=== PATIENT | female | born 1985 | race Caucasian/White ===

== ENCOUNTER 2020-01-07 12:05 | Emergency (ER) | payer BC ==
[2020-01-07 12:35] VITALS: TEMP 98.6
[2020-01-07] MEDS ORDERED: IBUPROFEN 600 MG TAB PO STA (13:00)
--- NOTE | 2020-01-07 13:19 | ED ---
Headache HPI - General Chief Complaint: Headache Stated Complaint: confusion, arm pain headache Time Seen by Provider: 01/07/20 12:38 Mode of arrival: wheelchair Limitations: no limitations - History of Present Illness Initial Comments: Patient is a 34-year-old female presenting to the emergency Department with complaints of a headache. Patient states she was riding her bike to work today when she was trying to think of her friends name and states she is not able to think of her right away. She states she became anxious because of this and felt like she was having some numbness in her right hand. Patient states she has been been worked up in the ER before for chest pain, anxiety. Is not taking any medication for this. Patient states this all lasted for approximately one hour, and now she developed a headache. She currently rates her headache a 5/10. She denies any blurry vision, falls or trauma to her head, nausea or vomiting. She denies taking any medications. She does not think she is but is willing to take a test. She denies any dizziness, lightheadedness, chest pain or shortness of breath. She has no further complaints at this time. Upon arrival to the ER, her vital signs are stable. - Related Data Home Medications Medication Instructions Recorded Confirmed No Known Home Medications 01/07/20 01/07/20 Allergies Allergy/AdvReac Type Severity Reaction Status Date / Time latex Allergy red skin Verified 01/07/20 13:58 sally Allergy congestion Uncoded 01/07/20 12:36 Review of Systems ROS Statement: Those systems with pertinent positive or pertinent negative responses have been documented in the HPI. ROS Other: All systems not noted in ROS Statement are negative. Past Medical History Past Medical History: Chest Pain / Angina Additional Past Medical History / Comment(s): belching with pain radiating rt upper quad into rt armpit and chest tightness with tightness into the throat,has MTHR Clotting Gene History of Any Multi-Drug Resistant Organisms: None Reported Past Surgical History: No Surgical Hx Reported Additional Past Surgical History / Comment(s): wisdom teeth Past Anesthesia/Blood Transfusion Reactions: Motion Sickness Additional Past Anesthesia/Blood Transfusion Reaction / Comment(s): never has had general anesthesia Past Psychological History: No Psychological Hx Reported Smoking Status: Never smoker Past Alcohol Use History: Occasional Past Drug Use History: None Reported - Past Family History Mother Family Medical History: Deep Vein Thrombosis (DVT) Father Family Medical History: Cancer Additional Family Medical History / Comment(s): skin Brother(s) Additional Family Medical History / Comment(s): IGA nephropathy General Exam - General Exam Comments Initial Comments: GENERAL: Patient is well-developed and well-nourished. Patient is nontoxic and in no acute distress. HEAD: Atraumatic, normocephalic. EYES: Pupils equal round and reactive to light, extraocular movements intact, sclera anicteric, conjunctiva are normal. Eyelids were unremarkable. ENT: TMs normal, nares patent, oropharynx clear without exudates. Moist mucous membranes. NECK: Normal range of motion, supple without lymphadenopathy or JVD. LUNGS: Unlabored respirations. Breath sounds clear to auscultation bilaterally and equal. No wheezes rales or rhonchi. HEART: Regular rate and rhythm without murmurs, rubs or gallops. ABDOMEN: Soft, nontender, normoactive bowel sounds. No guarding, no rebound. No masses appreciated. : Deferred MUSCULOSKELETAL: Normal extremities with adequate strength and normal range of motion, no pitting or edema. No clubbing or cyanosis. NEUROLOGICAL: Patient is alert and oriented x 3. Motor and sensory are also intact. Cranial nerves II through XII grossly intact. Symmetrical smile. Normal speech, normal gait. PSYCH: Normal mood, normal affect. SKIN: Warm, Dry, normal turgor, no rashes or lesions noted. Limitations: no limitations Course Vital Signs 01/07/20 01/07/20 01/07/20 12:33 13:19 14:42 Temperature 98.6 F Pulse Rate 67 53 L 66 Respiratory 16 18 18 Rate Blood Pressure 117/70 114/73 111/69 O2 Sat by Pulse 99 98 100 Oximetry 01/07/20 14:59 Temperature 98.6 F Pulse Rate 66 Respiratory 18 Rate Blood Pressure 111/69 O2 Sat by Pulse 100 Oximetry Medical Decision Making - Medical Decision Making Patient is a 34-year-old female here for a headache, after having some anxiety. Patient's exam is unremarkable, her vital signs are stable. There are no neuro deficits. I did do a computed tomography scan of the head which showed no acute abnormalities. Patient was given ibuprofen for her headache. She states it did improve slightly but was requesting additional pain meds. I did offer her a [place] tablet however patient refused. She states she feels well to go home. Patient is stable for discharge. I recommend following up with her PCP. Patient is agreeable with this plan of care. Return parameters were discussed with the patient she verbalized understanding. Case discussed with Dr. Baldwin. - Lab Data Lab Results 01/07/20 Range/Units 13:15 Urine HCG, Qual Not Detected (Not Detectd) Disposition Clinical Impression: Headache Disposition: HOME SELF-CARE Condition: Stable Instructions (If sedation given, give patient instructions): Acute Headache (ED) Additional Instructions: Please return to the Emergency Department if symptoms worsen or any other concerns. May continue with ibuprofen every 4-6 hours for continued headache. Follow-up with PCP. Is patient prescribed a controlled substance at d/c from ED?: No Referrals: Scar Allen DO [Primary Care Provider] - 1-2 days
[2020-01-07 13:20] VITALS: RESP 18
--- NOTE | 2020-01-07 14:01 | CT ---
EXAMINATION TYPE: CT brain wo con DATE OF EXAM: 01/07/2020 COMPARISON: None. HISTORY: Headache and confusion. CT DLP: 1099.4 mGycm. Automated Exposure Control for Dose Reduction was Utilized. TECHNIQUE: CT scan of the head is performed without contrast. FINDINGS: There is no acute intracranial hemorrhage, mass effect, or midline shift identified. The ventricles and sulci are within normal limits in size. Cabrera-white matter differentiation is maintai jorge luis. The globes are intact and the visualized sinuses are clear. Slightly low-lying right inferior ce rebellar tonsil axial image 5 but not greater than 5 mm inferior descent to suggest Chiari type I mal formation IMPRESSION: No acute intracranial hemorrhage or midline shift.
[2020-01-07] MEDS ORDERED: HYDROcodone/APAP 5-325MG 1 EACH TAB PO STA (14:22)
[2020-01-07 14:42] VITALS: BP 111/69; PULSE 66
== END 2020-01-07 14:59 | disposition home or self-care (01) ==
LOC: EC 12:05
DX: R51 Headache (principal); F41.9 Anxiety disorder, unspecified; R20.0 Anesthesia of skin; Z91.040 Latex allergy status; Z91.048 Other nonmedicinal substance allergy status
CPT/HCPCS: 70450; 81025; 99284

== ENCOUNTER → 2020-03-07 | Outpatient (CLI) | payer BC ==
--- NOTE | 2020-03-08 06:22 | MR ---
EXAMINATION TYPE: MR angio head wo con DATE OF EXAM: 03/07/2020 COMPARISON: NONE HISTORY: Expressive aphasia, rt hand numbness, TIA/CVA TECHNIQUE: Time of flight images focusing on the [place] were performed without contrast.. 2-D and 3-D postprocessing imaging is performed on independent workstation and reviewed. FINDINGS: There is dominant left vertebral artery. Both vertebral arteries are patent to basilar junc tion. No significant focal stenosis or aneurysmal change. Patent bilateral posterior communicating ar teries. Patent anterior communicating artery. No significant focal stenosis or aneurysmal change in the anter ior circulation. IMPRESSION: No significant focal stenosis or aneurysmal change at the level of the [place].
--- NOTE | 2020-03-08 06:24 | MR ---
EXAMINATION TYPE: MR brain wo con DATE OF EXAM: 03/07/2020 COMPARISON: CT brain January 07, 2020. HISTORY: Expressive aphasia, rt hand numbness, TIA/CVA TECHNIQUE: Multiplanar, multisequence imaging of the brain and brainstem is performed without IV cont rast. FINDINGS: Diffusion weighted images demonstrate no evidence of a recent infarct or other diffusion abnormality. There is no extraaxial fluid collection or significant white matter signal abnormality. The ventricu lar system and cisternal spaces are normal in size and appearance. The brain volume is age appropria te. Midline structures demonstrate normal morphology. Slightly low-lying right cerebellar tonsil sagittal image 11 approaching but just measuring under 5 mm. Normal vascular flow voids are present. The visu alized sinuses are clear and the globes are intact. IMPRESSION: No MRI evidence for a recent infarct. No significant White matter changes. Low-lying righ t cerebellar ectopia otherwise unremarkable study.
== END | disposition home or self-care (01) ==
LOC: RADMRIMAIN 20:54
PROVIDERS: ATTEND Psychiatry & Neurology Neurology
DX: G93.5 Compression of brain (principal); I67.9 Cerebrovascular disease, unspecified; Z86.73 Personal history of transient ischemic attack (TIA), and cerebral infarction without residual deficits
CPT/HCPCS: 70544; 70551

== ENCOUNTER 2023-02-17 03:09 | Inpatient (IN) | payer BC ==
[2023-02-17] MEDS ORDERED: CARBOPROST TROMETHAMINE 250 MCG/ML 1 ML AMP IM PRN (03:53)
[2023-02-17] MEDS ORDERED: TERBUTALINE 1 MG/ML VIAL SQ PRN (03:53)
[2023-02-17] MEDS ORDERED: METHYLERGONOVINE 0.2 MG/ML 1 ML AMP IM PRN (03:53)
[2023-02-17] MEDS ORDERED: miSOPROStoL 200 MCG TAB PO PRN ×2 (03:53→13:05)
[2023-02-17] MEDS ORDERED: OXYTOCIN 10 UNIT/ML 1 ML VIAL IM PRN (03:53)
[2023-02-17] MEDS ORDERED: TRANEXAMIC 1,000 MG/100ML-NACL 1,000 MG in EMPTY BAG 1 BAG IV PRN (03:53)
[2023-02-17] MEDS ORDERED: LIDOCAINE 0.5% (PF) 5 MG/ML (50 ML SDV) SQ PRN (03:53)
[2023-02-17] MEDS ORDERED: NALBUPHINE 10 MG/ML (10 ML MDV) IV PRN (03:55)
[2023-02-17] MEDS ORDERED: OXYTOCIN 30 UNITS/500 ML NS 30 UNIT in SALINE 1 500ML.BAG IV SCH (04:00)
[2023-02-17] MEDS: LACTATED RINGERS 1,000 ML IV SCH ×2 (04:10→18:34)
[2023-02-17 04:32] LABS: Basophils % (A) 0 %; Eosinophils % (A) 0 %; HCT 42.1 % (34.0-46.0); HGB 14.5 gm/dL (11.4-16.0); Lymphocytes # (A) 2.1 k/uL (1.0-4.8); Lymphocytes % (A) 19 %; MCH 35.5 pg (25.0-35.0); MCHC 34.6 g/dL (31.0-37.0); MCV 102.6 fL (80.0-100.0); Mean Platelet Volume 11.1; Monocytes # (A) 0.5 k/uL (0-1.0); Monocytes % (A) 4 %; Neutrophils # (A) 8.3 k/uL (1.3-7.7); Neutrophils % (A) 75 %; Platelet Count 144 k/uL (150-450); RDW 11.9 % (11.5-15.5)
--- NOTE | 2023-02-17 10:04 | P.HPOB ---
History of Present Illness H&P Date: 02/17/23 Chief Complaint: Labor at 40-5/7 This is a 37-year-old 1 para 0 woman with an estimated due date of 02/12/2023 based on LMP consistent with 8 week ultrasound who presents in spontaneous active labor at 40-5/7 weeks. Her has been monitored for possible history of TIA in 2019 with no residual neurologic effects. She is heterozygous MTH far and has been on aspirin 81 mg daily. She is known Rh- and received Ciera appropriately. On presentation to labor and delivery triage she reported approximately 10 hours of increasing contraction activity and was found to be 4+ centimeters dilated she is therefore admitted. Laboratory data: Blood type A-, antibody screen negative, rubella immune, VDRL nonreactive, hepatitis B surface antigen negative, HIV negative, gonorrhea and clinic cultures negative, group B strep negative, glucose tolerance testing with in normal limits. On Past medical history: Possible TIA 2019 Past surgical history EGD 2015 was some teeth removal age 16 Family history mother with history of blood clots social history negative for tobacco alcohol and drug use Review of Systems All systems: negative Past Medical History Past Medical History: Chest Pain / Angina Additional Past Medical History / Comment(s): belching with pain radiating rt upper quad into rt armpit and chest tightness with tightness into the throat,has MTHR Clotting Gene History of Any Multi-Drug Resistant Organisms: None Reported Past Surgical History: No Surgical Hx Reported Additional Past Surgical History / Comment(s): wisdom teeth Past Anesthesia/Blood Transfusion Reactions: Motion Sickness Additional Past Anesthesia/Blood Transfusion Reaction / Comment(s): never has had general anesthesia Past Psychological History: No Psychological Hx Reported Smoking Status: Never smoker Past Alcohol Use History: Occasional Past Drug Use History: None Reported - Past Family History Mother Family Medical History: Deep Vein Thrombosis (DVT), Pulmonary Embolus Father Family Medical History: Cancer Additional Family Medical History / Comment(s): skin Brother(s) Additional Family Medical History / Comment(s): IGA nephropathy Medications and Allergies Home Medications Medication Instructions Recorded Confirmed Type Aspirin [Adult Low Dose Aspirin EC] 1 tab PO DAILY 02/17/23 02/17/23 History Vit No.179/Iron/Folic 1 tab PO DAILY 02/17/23 02/17/23 History [ Tablet] Allergies Allergy/AdvReac Type Severity Reaction Status Date / Time latex Allergy red skin Verified 01/07/20 13:58 sally Allergy congestion Uncoded 01/07/20 12:36 Exam Vital Signs Temp Pulse Resp BP Pulse Ox 02/17/23 03:38 98.6 F 74 16 137/75 99 02/17/23 03:11 98.6 F 74 16 137/75 99 Intake and Output 02/16/23 02/17/23 02/17/23 22:59 06:59 14:59 Other: Weight 73.482 kg Limited physical exam is performed: Patient is somewhat uncomfortable with contractions, female who is visibly gravid. On pelvic examination the cervix is 6 cm dilated, 90% effaced and the vertex in the -2 station. Artificial rupture of membranes is undertaken and scant clear fluid is noted. Of note patient has a very flat pubic arch and flat narrow pelvic inlet. On heart tones are category 1 and she is apolinar every 4-5 minutes spontaneously. Results Result Diagrams: 02/17/23 03:55 Abnormal Lab Results - Last 24 Hours (Table) 02/17/23 Range/Units 03:55 WBC 11.0 H (3.8-10.6) k/uL MCV 102.6 H (80.0-100.0) fL MCH 35.5 H (25.0-35.0) pg Plt Count 144 L (150-450) k/uL Neutrophils # 8.3 H (1.3-7.7) k/uL Assessment and Plan (1) Advanced maternal age (AMA) in Current Visit: Yes Status: Acute Code(s): AGC3129 - SNOMED Code(s): 4164 68546 (2) Rh negative, maternal Current Visit: Yes Status: Acute Code(s): O26.899 - OTH RELATED CONDITIONS, UNSPECIFIED TRIMESTER; Z67.91 - UNSPECIFIED BLOOD TYPE, RH NEGATIVE SNOMED Code(s): 120138710 (3) Spontaneous onset of labor Current Visit: Yes Status: Acute Code(s): HRS9608 - SNOMED Code(s): 41474220 (4) Post-dates Current Visit: Yes Status: Acute Code(s): O48.0 - POST-TERM SNOMED Code(s): 01472143 Plan: 37-year-old 1 admitted in spontaneous active labor at 40-5/7 weeks gestation. Group B strep negative and Rh-. Of note she does have a narrow pelvic inlet. Pitocin augmentation will be initiated. Patient may have an epidural for analgesia upon request.
[2023-02-17] MEDS ORDERED: CITRIC ACID-SODIUM CITRATE 15 ML CUP PO ONE (13:05)
[2023-02-17] MEDS ORDERED: LACTATED RINGERS 1,000 ML IV ONE (13:05)
[2023-02-17] MEDS ORDERED: KETOROLAC 15 MG/ML 1 ML VIAL ONE (13:25)
[2023-02-17] MEDS ORDERED: OXYTOCIN 30 UNITS/500 ML NS BAG IV ONE (13:25)
[2023-02-17] MEDS ORDERED: ePHEDrine 50 MG/ML 1 ML VIAL ONE (13:25)
[2023-02-17] MEDS ORDERED: MORPHINE SULFATE (PF) 0.3 MG/0.3 ML SYR ONE (13:25)
[2023-02-17] MEDS ORDERED: NALBUPHINE 10 MG/ML (10 ML MDV) ONE (13:25)
[2023-02-17] MEDS ORDERED: ONDANSETRON 4 MG/2 ML VIAL ONE (13:25)
[2023-02-17] MEDS ORDERED: diphenhydrAMINE 50 MG/ML 1 ML VIAL IVP PRN ×2 (14:08)
[2023-02-17] MEDS ORDERED: METOCLOPRAMIDE 5 MG/ML 2 ML VIAL IVP PRN (14:08)
[2023-02-17] MEDS ORDERED: diphenhydrAMINE 50 MG CAP PO PRN (14:08)
[2023-02-17] MEDS ORDERED: ONDANSETRON 4 MG/2 ML VIAL IVP PRN (14:08)
[2023-02-17] MEDS ORDERED: diphenhydrAMINE 25 MG CAP PO PRN (14:08)
[2023-02-17] MEDS ORDERED: HYDROmorphone 2 MG TAB PO PRN (14:08)
[2023-02-17] MEDS ORDERED: NALOXONE 0.4 MG/ML 1 ML VIAL IV PRN (14:08)
[2023-02-17] MEDS ORDERED: ZOLPIDEM 5 MG TAB PO PRN (14:08)
--- NOTE | 2023-02-17 14:08 | P.OP ---
Date of Procedure: 02/17/23 Preoperative Diagnosis: Intrauterine at 40-5/7 weeks Arrestive descent and dilatation Neuro maternal pubic arch Postoperative Diagnosis: Same Procedure(s) Performed: Primary low transverse section Anesthesia: spinal Surgeon: Sahra Amezcua Acid Bath Mixer #1: Amanda Muro Estimated Blood Loss (ml): 450 IV fluids (ml): 1,000 Urine output (ml): 100 Pathology: none sent Condition: stable Disposition: floor Indications for Procedure: This is a 37 year old 1 para 0 woman who presents in spontaneous active labor at 40-5/7 weeks gestation. She is approximate 4 cm dilated upon admission at 3:30 AM. She only progressed to 6-7 cm by approximately 9:30 AM and remained at this until approximately 1 PM. Of note on exam patient had extremely flat pubic arch and narrow pelvic inlet. She and her were counseled extensively regarding concerns for cephalopelvic disproportion and she opted to proceed as recommended to section. Risks of the procedure were reviewed with the patient and included bleeding, transfusion, infection, injury to bowel, bladder, ureters and/or the infant. Consent was obtained. Operative Findings: Male infant in the occiput transverse position with Apgars of 9 at 1 minute and 9 at 5 minutes weighing 7 lbs. 6 oz., 3350 g. Normal-appearing uterus, bilateral fallopian tubes and ovaries. Description of Procedure: After the patient and her were counseled extensively and consent was obtained, she was taken to the operating room where spinal anesthetic was administered without incident. She was in positioned, prepped and draped in the dorsal supine position with a leftward tilt and a Magaña catheter in place. She received antibiotics preoperatively. After anesthetic was confirmed adequate and appropriate timeout procedure was undertaken, a low transverse skin incision was made and carried down to the underlying fascia sharply and with the electrocautery. Fascia incised in the midline and extended bilaterally with the Garibay scissors. Inferior and superior aspects of the fascial incision were elevated and the underlying rectus muscles dissected off sharply. The rectus muscles were bluntly in the midline and the peritoneum was tented up and entered sharply. The peritoneal incision was extended inferiorly and superiorly with good visualization the bladder. Bladder blade was placed and the vesicouterine peritoneum was identified, tented up and entered sharply. The bladder flap was created digitally. The bladder blade was replaced and a low transverse uterine incision was made and carried down to the amniotic fluid sharply. Copious clear fluid was noted. The uterine incision was extended bilaterally bluntly. The infant's head was delivered without difficulty out of the incision from the occiput transverse position. The nose and mouth were bulb suctioned. The rest the infant was delivered onto the field with an nose and mouth were further bulb suctioned. The cord was clamped and cut and the infant was taken to the warmer for further assessment. Apgars were 9 at 1 minute and 9 at 5 minutes. Cord blood sample was taken for maternal Rh- status. The placenta was then manually removed and the uterus was exteriorized. The uterine incision was delineated with Narvaez clamps and closed in a running locked fashion with 0 Vicryl suture followed by second imbricating layer of the same. An additional [id number] suture was placed in the left aspect for hemostasis which was then noted. The uterus was returned to the abdomen and the gutters were cleared of all clot and debris. Uterine incision was reinspected and noted to be hemostatic. The peritoneal edges, rectus muscles and fascial edges were all inspected and noted to be hemostatic. The fascia was then closed in a running fashion with 0 Vicryl suture. The subcuticular tissue was copiously suction irrigated and reapproximated with 3-0 chromic. The skin was then closed with 4-0 Vicryl suture subcuticularly. All counts reported to me as correct and the patient did receive Pitocin following the third stage. Both mother and were doing well and transported to recovery in good condition.
[2023-02-17] MEDS ORDERED: Rhogam IMMUNE GLOBULIN 1,500 UNIT/1 ML IM ONE (19:37)
[2023-02-17] MEDS: ACETAMINOPHEN TAB 500 MG TAB PO SCH (19:45)
[2023-02-17] MEDS: SENNOSIDES-DOCUSATE SODIUM 1 EACH TAB PO SCH (20:22)
[2023-02-17] MEDS: KETOROLAC 15 MG/ML 1 ML VIAL IVP SCH (21:11)
[2023-02-17] MEDS: IBUPROFEN 600 MG TAB PO SCH (22:19)
[2023-02-18] MEDS: ACETAMINOPHEN TAB 500 MG TAB PO SCH ×4 (02:01→18:53)
[2023-02-18] MEDS: KETOROLAC 15 MG/ML 1 ML VIAL IVP SCH ×3 (03:56→15:54)
[2023-02-18] MEDS: IBUPROFEN 600 MG TAB PO SCH ×4 (04:08→21:31)
[2023-02-18 08:18] VITALS: RESP 16
[2023-02-18 08:27] LABS: Basophils % (A) 0 %; Eosinophils % (A) 0 %; HCT 36.7 % (34.0-46.0); HGB 12.6 gm/dL (11.4-16.0); Lymphocytes # (A) 1.5 k/uL (1.0-4.8); Lymphocytes % (A) 9 %; MCH 36.8 pg (25.0-35.0); MCHC 34.4 g/dL (31.0-37.0); Macrocytosis Moderate; Mean Platelet Volume 10.4; Monocytes # (A) 0.5 k/uL (0-1.0); Monocytes % (A) 3 %; Neutrophils # (A) 15.1 k/uL (1.3-7.7); Neutrophils % (A) 87 %; Platelet Count 113 k/uL (150-450); RBC 3.43 m/uL (3.80-5.40); WBC 17.3 k/uL (3.8-10.6)
--- NOTE | 2023-02-18 08:50 | P.PNOBGPC ---
Subjective - Subjective Patient reports: Reports appetite normal, Reports voiding normally, Reports pain well controlled, Reports ambulating normally : doing well Objective - Vital Signs Latest vital signs: Vital Signs Temp Pulse Resp BP Pulse Ox 02/18/23 08:00 98.0 F 62 16 172/79 98 02/18/23 04:00 97.3 F L 69 18 109/63 02/18/23 00:00 98.6 F 57 L 18 108/62 97 02/17/23 19:19 97.8 F 52 L 16 114/71 100 02/17/23 16:24 16 02/17/23 16:00 98.5 F 55 L 16 132/72 02/17/23 15:54 98.2 F 61 16 123/59 02/17/23 15:24 98.1 F 55 L 16 138/71 02/17/23 15:09 55 L 16 126/68 02/17/23 14:54 55 L 16 117/63 02/17/23 14:39 97.2 F L 60 16 125/53 02/17/23 14:24 97.1 F L 60 16 110/66 Intake and Output 02/17/23 02/18/23 02/18/23 22:59 06:59 14:59 Intake Total 500 Output Total 1025 400 300 Balance -525 -400 -300 Intake: IV 500 Output: Urine 600 400 300 Straight 300 Uretheral (Magaña) 200 Output, Quantitative 425 Blood Loss - Exam Extremities: Present: normal Abdomen: Present: normal appearance, soft. Absent: distention, tenderness Incision: Present: normal, dry, intact Uterus: Present: normal, firm - Labs Labs: Abnormal Lab Results - Last 24 Hours (Table) 02/18/23 Range/Units 07:47 WBC 17.3 H (3.8-10.6) k/uL RBC 3.43 L (3.80-5.40) m/uL MCV 107.0 H (80.0-100.0) fL MCH 36.8 H (25.0-35.0) pg Plt Count 113 L (150-450) k/uL Neutrophils # 15.1 H (1.3-7.7) k/uL Assessment and Plan (1) Status post section Current Visit: Yes Status: Acute Code(s): Z98.891 - HISTORY OF UTERINE SCAR FROM PREVIOUS SURGERY SNOMED Code(s): 836180972 Plan: Continue routine and postoperative care. I have encouraged patient and to always routinely. I would anticipate discharge home tomorrow pending no complications.
[2023-02-18] MEDS: LACTATED RINGERS 1,000 ML IV SCH ×2 (08:59→16:17)
[2023-02-18] MEDS: SENNOSIDES-DOCUSATE SODIUM 1 EACH TAB PO SCH ×2 (10:02→18:54)
--- NOTE | 2023-02-18 11:37 | P.PN ---
Progress Note - Text 02/18/23 644am 37-year-old female status post with spinal Duramorph. Patient seen and evaluated for postop pain control patient has a VAS of 2 with no complains of nausea vomiting or pruritus. Patient doing well
[2023-02-19] MEDS: ACETAMINOPHEN TAB 500 MG TAB PO SCH ×3 (00:35→13:05)
[2023-02-19] MEDS: IBUPROFEN 600 MG TAB PO SCH ×2 (03:43→10:15)
[2023-02-19] MEDS: SENNOSIDES-DOCUSATE SODIUM 1 EACH TAB PO SCH (06:15)
[2023-02-19 08:58] VITALS: BP 127/70; PULSE 68; TEMP 98.5
--- NOTE | 2023-02-19 10:20 | P.DS ---
Providers Date of admission: 02/17/23 03:31 Expected date of discharge: 02/19/23 Attending physician: Jeffrey Burns Primary care physician: Stated None - Discharge Diagnosis(es) (1) Status post section Current Visit: Yes Status: Acute Hospital Course: The patient is a 37-year-old 1 para 0 admitted at 40-5/7 weeks by good dating parameters. She had declined induction of labor up referring to labor naturally. She presented to labor and delivery in active labor with all signs reassuring, category 1 heart rate tracing. She is known to be Rh- and received RhoGAM at 28 weeks. She was admitted at approximate 4 cm. She ultimately had artificial rupture of membranes carried out for clear fluid and Pitocin augmentation. She made progress to approximately 6-7 cm at which time she arrested dilation and descent for more than 4 hours. She was noted on examination to have a significantly flat pubic arch and narrow anterior to po sterior pelvic inlet and outlet consistent with a platypelloid pelvic shape. She was counseled and agreed to undergo primary low-transverse section first taken to the operating room where she was delivered of a viable 7 lbs. 6 oz. baby boy with Apgars of 9 at 1 minute and 9 at 5 minutes. Her and postoperative course was unremarkable with vital signs remained stable and her temperature was afebrile throughout. She was deemed stable for discharge on and postoperative day #2. She was discharged home to follow-up in the office in 2 weeks for an incision check and 6 weeks routinely. Discharge instructions included calling for any significantly increased bleeding or foul- smelling lochia, significantly increased fever or abdominal pain, perineal complaints, breast complaints, incisional complaints, or anything else that concerned her. She was additionally instructed to have nothing in the vagina for at least 6 weeks time to include intercourse. She was to do no heavy lifting over the same period of time and she was to abstain from driving until off of all pain medications or 2 weeks' time, whichever came first. She understood all of her instructions and agrees follow up as noted above. Discharge medications included continued vitamins as she has opted to breast-feed. She was otherwise to use [id number] analgesic pain medications. She was provided with a prescription for Tylenol 3, 1-2 by mouth every 6 hours when necessary pain, #20 dispensed with no refills. Maternal blood type is A- and cord blood was sent for evaluation for the necessity of RhoGAM prior to discharge. Rubella status is immune. Discharge hemoglobin and hematocrit were 12.6 and 36.7 respectively. Procedures: #1. Artificial rupture of membranes #2. Pitocin augmentation #3. Primary low- transverse section Patient Condition at Discharge: Stable Plan - Discharge Summary New Discharge Prescriptions: No Action Vit No.179/Iron/Folic [ Tablet] 1 tab PO DAILY Aspirin [Adult Low Dose Aspirin EC] 1 tab PO DAILY Discharge Medication List Aspirin [Adult Low Dose Aspirin EC] 1 tab PO DAILY 02/17/23 [History] Vit No.179/Iron/Folic [ Tablet] 1 tab PO DAILY 02/17/23 [History] Follow up Appointment(s)/Referral(s): Jeffrey Burns MD [STAFF PHYSICIAN] - 2 Weeks Discharge Disposition: HOME SELF-CARE
== END 2023-02-19 15:45 | disposition home or self-care (01) | DRG 788 ==
LOC: FBPOP 03:09 → 4FBP 03:31
PROVIDERS: ADMIT Obstetrics & Gynecology; ATTEND Obstetrics & Gynecology
PROC: 10907ZC Drainage of Amniotic Fluid, Therapeutic from Products of Conception, Via Natural or Artificial Opening (ICD-10-PCS; 2023-02-17)
PROC: 3E033VJ Introduction of Other Hormone into Peripheral Vein, Percutaneous Approach (ICD-10-PCS; 2023-02-17)
PROC: 10D00Z1 Extraction of Products of Conception, Low, Open Approach (ICD-10-PCS; principal; 2023-02-17 13:30)
DX: O32.2XX0 Maternal care for transverse and oblique lie, not applicable or unspecified (principal); O26.893 Other specified pregnancy related conditions, third trimester; O48.0 Post-term pregnancy; Z37.0 Single live birth; Z3A.40 40 weeks gestation of pregnancy; Z79.82 Long term (current) use of aspirin; Z86.73 Personal history of transient ischemic attack (TIA), and cerebral infarction without residual deficits; Z67.41 Type O blood, Rh negative; Z91.040 Latex allergy status
CPT/HCPCS: 59025; 85025; 85461; 86850; 86900; 86901; 99213